=== PATIENT | male | born 1955 | race Caucasian/White ===

== ENCOUNTER → 2023-12-26 09:47 | Outpatient (REF) | payer OTHER, SELFPAY ==
[2023-12-26 11:08] LABS: Blood Urea Nitrogen 18 mg/dl (9-20); Calcium 9.5 mg/dl (8.4-10.2); Carbon Dioxide 28 mmol/L (22-30); Chloride 103 mmol/L (98-107); Glucose 105 mg/dl (70-99); Potassium 5.3 mmol/L (3.5-5.1); Sodium 136 mmol/L (135-145); eGFR > 60.00
== END ==
LOC: REG 09:47
PROVIDERS: ATTENDING PHYSICIAN Physician Assistant
DX: E87.5 Hyperkalemia (principal)
CPT/HCPCS: 36415; 80048

== ENCOUNTER → 2024-01-25 15:39 | Outpatient (REF) | payer OTHER, SELFPAY | LOC: HWRAD 15:39 | PROVIDERS: ATTENDING PHYSICIAN Family Medicine | DX: Z87.891 Personal history of nicotine dependence (principal) | CPT/HCPCS: 71271 ==

== ENCOUNTER 2024-06-26 22:34 | Inpatient (IN) | payer OTHER, MEDICARE, SELFPAY ==
[2024-06-26] VITALS (9 sets, daily range): BP systolic 90–162; BP diastolic 63–89; BMI 27.9
--- NOTE | 2024-06-26 21:11 | ED.GENMED ---
History of Present Illness
<JORGE Palomares - Last Filed: 06/26/24 23:37>
General
Chief Complaint: Chest Pain
Source: patient
Exam Limitations: none
Time Seen by Provider: 06/26/24 21:08
Nursing documentation reviewed up to this point in time: agreed with
History of Present Illness
History of Present Illness:
Patient is a 68-year-old male past medical history of stroke presents to the ER for evaluation of chest pain. Patient reports he had an episode of chest pain today at lunch around 2 PM which lasted for about half an hour and then pain restarted
around 6 PM while eating dinner. He could barely eat his dinner although he did have some Pasta. He does admit to having 4 beers around 4 pm. He reports the pain was across his chest and did not radiate to arm/back. HE did break out in a
sweat withth pain and felt nauseous he did not vomit. EMS was called to scene and patient received 2 nitroglycerin and aspirin and he reports this did not relieve the symptoms. He however also took his own ASA.
He is a smoker.
He continues to have pain. pt is not on blood thinner.
Past History
<JORGE Palomares - Last Filed: 06/26/24 23:37>
Past History
ED Past Medical History: None
ED Past Surgical History: Orthopedic (knee surgery) and Other (Hernia repair bilateral, colovesical fistula and splenic flexure mobilization in December of 2016)
Social History
Tobacco: Smoker (3 packs per week)
Alcohol: Occasional
Drug: None
Personal:
Living: with family
Employment: Employed
Family History
Family History: Other (reviewed and noncontributory)
Phy Exam
<JORGE Palomares - Last Filed: 06/26/24 23:37>
General Physical Exam
General Presentation: mild distress
General age: appears stated age
General Skin: warm and dry
General Habitus: normal
General Mental: alert
General Hydration: appears well hydrated
Cardiovascular Exam
Cardiovascular Exam: regular rate/rhythm, no murmur and normal peripheral pulses
Pulmonary Exam
Pulmonary Exam: lungs clear and no respiratory distress
Neurological Exam
Neurological Exam: alert and oriented x3
Musculoskeletal Exam
Musculoskeletal Exam: full ROM
Skin Exam
Skin Exam: normal color and warm/dry
Psychiatric Exam
Psychiatric Exam: normal mood/affect
Scores
<Mariam Templeton DO - Last Filed: 06/27/24 00:59>
Heart Score for Chest Pain Patients
STEMI patient?: No
History: Highly Suspicious
ECG: Nonspecific Repolarization
Age: >/= 65 years
Risk Factors: 1 or 2 Risk Factors
Troponin: </= Normal Limit
Heart Score for Chest Pain Patients: 6
Heart Score Risk: 20.3% MACE over next 6 weeks
Course
<JORGE Palomares - Last Filed: 06/26/24 23:37>
Orders/Labs/Results
Orders:
Orders
06/26/24 21:02
Amiodarone [Cordarone] 150 mg .ROUTE .STK-MED ONE
EPINEPHrine [Adrenalin 1 mg/10 ml] 1 mg .ROUTE .STK-MED ONE
Etomidate [Amidate] 40 mg .ROUTE .STK-MED ONE
Rocuronium Semora [Rocuronium] 100 mg .ROUTE .STK-MED ONE
06/26/24 21:03
Electrocardiogram (*1) Urgent
Reason for Study: Chest Pain
Cardiac Monitoring- Treatment ONCE
EKG- Treatment ONCE
IV Insert/Care/Rem.- Treatment PRN
O2 Therapy [RESP] Urgent
Titrate/Wean O2 to maintain O2 sat greater than (%): 90
Special Instructions: Maintain sats >/=90%
Pulse Ox/spot Check [RESP] Urgent
Quantity: 1
Special Instructions: ON ROOM AIR
06/26/24 21:09
Complete Blood Count/With Diff Urgent
Comprehensive Metabolic Panel Urgent
Manual Differential Urgent
Troponin I Urgent
06/26/24 21:17
Mag Hydrox/Al Hydrox/Simeth [Maalox] 30 ml Phenobarb/Hyoscy/Atropine/Scop [] 10 ml PO NOW
06/26/24 21:26
EKG [Electrocardiogram (*1)] Stat
Reason for Study: CAD
06/26/24 21:27
EKG- Treatment ONCE
06/26/24 21:29
Ondansetron Injectable [Zofran] 4 mg .ROUTE .STK-MED ONE
Ondansetron Injectable [Zofran] 4 mg IV NOW STA
06/26/24 21:34
Amiodarone [Cordarone] 150 mg Dextrose 5%/Water 100 ml [D5w] 100 ml IV NOW
06/26/24 21:35
Amiodarone [Cordarone] 150 mg Dextrose 5%/Water 100 ml [D5w] 100 ml IV NOW
06/26/24 21:36
EKG [Electrocardiogram (*1)] Stat
Reason for Study: CAD
EKG- Treatment ONCE
06/26/24 21:49
Morphine Sulfate 4 mg .ROUTE .STK-MED ONE
06/26/24 22:08
Fentanyl Citrate/Pf [Sublimaze] 100 mcg .ROUTE .STK-MED ONE
Heparin 10,000 units .ROUTE .STK-MED ONE
Heparin 1000 Units/500 ml [Heparin] 1,000 units in 500 ml .ROUTE .STK-MED
Midazolam HCl [Versed] 2 mg .ROUTE .STK-MED ONE
Verapamil Injectable [Isoptin/Verapamil Injection] 5 mg .ROUTE .STK-MED ONE
06/26/24 22:09
Heparin Sodium,Porcine/Ns/Pf [Heparin 2000 Units/1000 ml] 2,000 unit in 1,000 ml .ROUTE .STK-MED
Lidocaine HCl/Pf [Xylocaine-Mpf 1% Vial] 100 mg .ROUTE .STK-MED ONE
Nitroglycerin [Tridil] 1,500 mcg .ROUTE .STK-MED ONE
06/26/24 22:20
Admit/Transfer Patient As Directed
Co-Sign Provider:
Level of Care: Inpatient admission
Assign to:: IVU
Physician / Group: htay
Diagnosis: VTach, assciated with trasient unresponsivenes, CP, ETOH use,HX lacuna CVA
Reason for Hospitalization: V Tach, assciated with trasient unresponsivenes, CP, ETOH use,HX lacuna CVA
Expected length of stay greater than two midnights?: Yes
ELOS- Estimated Length of Stay in days: 3
I certify the patient meets the requirements for IP care: Yes
06/26/24 22:23
Code Status As Directed
Resuscitation Status: Full Code
06/26/24 22:26
Ticagrelor [Brilinta] 180 mg .ROUTE .STK-MED ONE
06/26/24 22:27
Heparin 5,000 units .ROUTE .STK-MED ONE
06/26/24 22:30
Urine Osmolality Random [Osmolality, Random Urine] Routine
Urine Sodium Routine
06/26/24 23:21
Electrocardiogram (*1) Q6H
Reason for Study: Chest Pain
Comment: at admission and Q3H for total of 3, to be done with each troponin
0.9% Sodium Chloride [Nss (Preservative Free)] See Protocol IV PRN PRN
FOLic ACID [Folvite] 1 mg 0.9% Sodium Chloride 50 ml [Nss] 50 ml IV DAILYPRN
Lorazepam [Ativan] 1 mg IV Q1HPRN PRN
Lorazepam [Ativan] 1 mg PO Q2HPRN PRN
Lorazepam [Ativan] 2 mg IV Q1HPRN PRN
06/26/24 23:21
CARDIOLOGY CONSULT Routine
Consulting Provider: Nick Bridges
Was physician already notified: Yes
Reason for consult: VTach, assciated with trasient unresponsivenes, CP, ETOH use,HX lacuna CVA
CARDIOLOGY CONSULT Routine
Consulting Provider: Volodymyr Boss
Was physician already notified: No
Reason for consult: V Tach with AMS s/p Defib - proceeded to high density press laborer
Case Management Consult Once
Case Management Consult: Other
Comment: Substance abuse counseling
Consult Notification Routine
Specialty to Notify: Cardiology
Activity As Directed
Activity Level: With Assistance
INT (Intravenous Needle Therapy) As Directed
Comment: maintain peripheral IV access
Intake/ Output As Directed
Frequency: Per unit guidelines
MSAS SCORE As Directed
MSAS Score 0-4: Repeat MSAS every 2 hours until 0-4 for three consecutive assessments, then every 4 hours x 48
hours.
MSAS Score 5-7: For MILD withdrawl symptoms. Repeat MSAS and RASS every 2 hours
MSAS Score 8-11: For MODERATE withdrawal symptoms. Repeat MSAS and RASS every 1 hour. Consider ICU or IMU
level of care.
MSAS Score > 11: For SEVERE withdrawal symptoms. Repeat MSAS and RASS every 1 hour. Notify provider, consider
ICU level of care.
MSAS Additional Instructions: If no improvement or no decrease in score from severe to moderate within 12
hours, consult psychiatry
MSAS Notify Provider: Notify provider if patient requires more than 10 mg of Lorazepam in eight hour period.
Pneumatic Compression Sleeves As Directed
Type: Knee high
Pneumatic Compression Sleeves As Directed
Type: Knee high
Vital Signs As Directed
Frequency: q4h
Weight As Directed
Frequency: Daily
DX Deep Vein Thrombosis Video Routine
DX Deep Vein Thrombosis Video Routine
06/26/24 23:31
Alcohol Urgent
GGTP Urgent
Troponin I Q3H
Comment: at admit & Q3H for 3 total including ED draws, obtain ECG with each level
06/27/24 02:21
Troponin I Q3H
Comment: at admit & Q3H for 3 total including ED draws, obtain ECG with each level
06/27/24 05:21
Electrocardiogram (*1) Q6H
Reason for Study: Chest Pain
Comment: at admission and Q3H for total of 3, to be done with each troponin
Troponin I Q3H
Comment: at admit & Q3H for 3 total including ED draws, obtain ECG with each level
06/27/24 Breakfast
NPO
Allow oral meds: Yes
Allow clear liquids: No
NPO with Ice Chips: Yes
Basic Metabolic Panel IN AM
Cardiovascular Evaluation IN AM
Complete Blood Count/No Diff IN AM
06/27/24 08:00
Aspirin Low Dose EC [Aspir Low (Enteric Coated)] 81 mg PO DAILY
FOLic ACID [Folvite] 1 mg PO DAILY
Thiamine Injection 200 mg IV Q12
06/27/24 11:21
Electrocardiogram (*1) Q6H
Reason for Study: Chest Pain
Comment: at admission and Q3H for total of 3, to be done with each troponin
06/27/24 18:00
Rosuvastatin Calcium [Crestor] 20 mg PO QPM
06/30/24 08:00
Thiamine HCl [Vitamin B1] 100 mg PO BID
Abnormal Lab Results
06/26/24
21:09
WBC 12.5 H 10^3/uL
(4.8-10.8)
RBC 3.98 L 10^6/uL
(4.70-6.10)
Hgb 12.5 L g/dL
(13.0-18.0)
Hct 35.4 L %
(39.0-52.0)
MCH 31.4 H pg
(27.0-31.0)
Monocytes (Manual) 13 H %
(2-9)
Sodium 128 L mmol/L
(135-145)
Chloride 95 L mmol/L
(98-107)
Glucose 126 H mg/dl
(70-99)
06/26/24 21:09
06/26/24 21:09
Vital Signs
Initial and Last Documented VS:
Initial Vital Signs
Temp Pulse Resp BP Pulse Ox
98.2 F 70 16 90/67 98
06/26/24 21:05 06/26/24 21:05 06/26/24 21:05 06/26/24 21:05 06/26/24 21:05
Last Documented Vital Signs
Temp Pulse Resp BP Pulse Ox
98.3 F 76 16 101/68 99
06/26/24 23:23 06/26/24 22:00 06/26/24 23:23 06/26/24 22:00 06/27/24 00:36
Modern Languages Professor consulted with Physician
Modern Languages Professor consulted with physician?: Yes
Name of Physician Consulted: Jareth
<Mariam Templeton, DO - Last Filed: 06/27/24 00:59>
Orders/Labs/Results
Orders:
Orders
06/26/24 21:02
Amiodarone [Cordarone] 150 mg .ROUTE .STK-MED ONE
EPINEPHrine [Adrenalin 1 mg/10 ml] 1 mg .ROUTE .STK-MED ONE
Etomidate [Amidate] 40 mg .ROUTE .STK-MED ONE
Rocuronium Semora [Rocuronium] 100 mg .ROUTE .STK-MED ONE
06/26/24 21:03
Electrocardiogram (*1) Urgent
Reason for Study: Chest Pain
Cardiac Monitoring- Treatment ONCE
EKG- Treatment ONCE
IV Insert/Care/Rem.- Treatment PRN
O2 Therapy [RESP] Urgent
Titrate/Wean O2 to maintain O2 sat greater than (%): 90
Special Instructions: Maintain sats >/=90%
Pulse Ox/spot Check [RESP] Urgent
Quantity: 1
Special Instructions: ON ROOM AIR
06/26/24 21:09
Complete Blood Count/With Diff Urgent
Comprehensive Metabolic Panel Urgent
Manual Differential Urgent
Troponin I Urgent
06/26/24 21:17
Mag Hydrox/Al Hydrox/Simeth [Maalox] 30 ml Phenobarb/Hyoscy/Atropine/Scop [] 10 ml PO NOW
06/26/24 21:26
EKG [Electrocardiogram (*1)] Stat
Reason for Study: CAD
06/26/24 21:27
EKG- Treatment ONCE
06/26/24 21:29
Ondansetron Injectable [Zofran] 4 mg .ROUTE .STK-MED ONE
Ondansetron Injectable [Zofran] 4 mg IV NOW STA
06/26/24 21:34
Amiodarone [Cordarone] 150 mg Dextrose 5%/Water 100 ml [D5w] 100 ml IV NOW
06/26/24 21:35
Amiodarone [Cordarone] 150 mg Dextrose 5%/Water 100 ml [D5w] 100 ml IV NOW
06/26/24 21:36
EKG [Electrocardiogram (*1)] Stat
Reason for Study: CAD
EKG- Treatment ONCE
06/26/24 21:49
Morphine Sulfate 4 mg .ROUTE .STK-MED ONE
06/26/24 22:08
Fentanyl Citrate/Pf [Sublimaze] 100 mcg .ROUTE .STK-MED ONE
Heparin 10,000 units .ROUTE .STK-MED ONE
Heparin 1000 Units/500 ml [Heparin] 1,000 units in 500 ml .ROUTE .STK-MED
Midazolam HCl [Versed] 2 mg .ROUTE .STK-MED ONE
Verapamil Injectable [Isoptin/Verapamil Injection] 5 mg .ROUTE .STK-MED ONE
06/26/24 22:09
Heparin Sodium,Porcine/Ns/Pf [Heparin 2000 Units/1000 ml] 2,000 unit in 1,000 ml .ROUTE .STK-MED
Lidocaine HCl/Pf [Xylocaine-Mpf 1% Vial] 100 mg .ROUTE .STK-MED ONE
Nitroglycerin [Tridil] 1,500 mcg .ROUTE .STK-MED ONE
06/26/24 22:20
Admit/Transfer Patient As Directed
Co-Sign Provider:
Level of Care: Inpatient admission
Assign to:: IVU
Physician / Group: htay
Diagnosis: VTach, assciated with trasient unresponsivenes, CP, ETOH use,HX lacuna CVA
Reason for Hospitalization: V Tach, assciated with trasient unresponsivenes, CP, ETOH use,HX lacuna CVA
Expected length of stay greater than two midnights?: Yes
ELOS- Estimated Length of Stay in days: 3
I certify the patient meets the requirements for IP care: Yes
06/26/24 22:23
Code Status As Directed
Resuscitation Status: Full Code
06/26/24 22:26
Ticagrelor [Brilinta] 180 mg .ROUTE .STK-MED ONE
06/26/24 22:27
Heparin 5,000 units .ROUTE .STK-MED ONE
06/26/24 22:30
Urine Osmolality Random [Osmolality, Random Urine] Routine
Urine Sodium Routine
06/26/24 23:21
Electrocardiogram (*1) Q6H
Reason for Study: Chest Pain
Comment: at admission and Q3H for total of 3, to be done with each troponin
0.9% Sodium Chloride [Nss (Preservative Free)] See Protocol IV PRN PRN
FOLic ACID [Folvite] 1 mg 0.9% Sodium Chloride 50 ml [Nss] 50 ml IV DAILYPRN
Lorazepam [Ativan] 1 mg IV Q1HPRN PRN
Lorazepam [Ativan] 1 mg PO Q2HPRN PRN
Lorazepam [Ativan] 2 mg IV Q1HPRN PRN
06/26/24 23:21
CARDIOLOGY CONSULT Routine
Consulting Provider: Ncik Bridges
Was physician already notified: Yes
Reason for consult: VTach, assciated with trasient unresponsivenes, CP, ETOH use,HX lacuna CVA
CARDIOLOGY CONSULT Routine
Consulting Provider: Volodymyr Boss
Was physician already notified: No
Reason for consult: V Tach with AMS s/p Defib - proceeded to high density press laborer
Case Management Consult Once
Case Management Consult: Other
Comment: Substance abuse counseling
Consult Notification Routine
Specialty to Notify: Cardiology
Activity As Directed
Activity Level: With Assistance
INT (Intravenous Needle Therapy) As Directed
Comment: maintain peripheral IV access
Intake/ Output As Directed
Frequency: Per unit guidelines
MSAS SCORE As Directed
MSAS Score 0-4: Repeat MSAS every 2 hours until 0-4 for three consecutive assessments, then every 4 hours x 48
hours.
MSAS Score 5-7: For MILD withdrawl symptoms. Repeat MSAS and RASS every 2 hours
MSAS Score 8-11: For MODERATE withdrawal symptoms. Repeat MSAS and RASS every 1 hour. Consider ICU or IMU
level of care.
MSAS Score > 11: For SEVERE withdrawal symptoms. Repeat MSAS and RASS every 1 hour. Notify provider, consider
ICU level of care.
MSAS Additional Instructions: If no improvement or no decrease in score from severe to moderate within 12
hours, consult psychiatry
MSAS Notify Provider: Notify provider if patient requires more than 10 mg of Lorazepam in eight hour period.
Pneumatic Compression Sleeves As Directed
Type: Knee high
Pneumatic Compression Sleeves As Directed
Type: Knee high
Vital Signs As Directed
Frequency: q4h
Weight As Directed
Frequency: Daily
DX Deep Vein Thrombosis Video Routine
DX Deep Vein Thrombosis Video Routine
06/26/24 23:31
Alcohol Urgent
GGTP Urgent
Troponin I Q3H
Comment: at admit & Q3H for 3 total including ED draws, obtain ECG with each level
06/27/24 02:21
Troponin I Q3H
Comment: at admit & Q3H for 3 total including ED draws, obtain ECG with each level
06/27/24 05:21
Electrocardiogram (*1) Q6H
Reason for Study: Chest Pain
Comment: at admission and Q3H for total of 3, to be done with each troponin
Troponin I Q3H
Comment: at admit & Q3H for 3 total including ED draws, obtain ECG with each level
06/27/24 Breakfast
NPO
Allow oral meds: Yes
Allow clear liquids: No
NPO with Ice Chips: Yes
Basic Metabolic Panel IN AM
Cardiovascular Evaluation IN AM
Complete Blood Count/No Diff IN AM
06/27/24 08:00
Aspirin Low Dose EC [Aspir Low (Enteric Coated)] 81 mg PO DAILY
FOLic ACID [Folvite] 1 mg PO DAILY
Thiamine Injection 200 mg IV Q12
06/27/24 11:21
Electrocardiogram (*1) Q6H
Reason for Study: Chest Pain
Comment: at admission and Q3H for total of 3, to be done with each troponin
06/27/24 18:00
Rosuvastatin Calcium [Crestor] 20 mg PO QPM
06/30/24 08:00
Thiamine HCl [Vitamin B1] 100 mg PO BID
Abnormal Lab Results
06/26/24
21:09
WBC 12.5 H 10^3/uL
(4.8-10.8)
RBC 3.98 L 10^6/uL
(4.70-6.10)
Hgb 12.5 L g/dL
(13.0-18.0)
Hct 35.4 L %
(39.0-52.0)
MCH 31.4 H pg
(27.0-31.0)
Monocytes (Manual) 13 H %
(2-9)
Sodium 128 L mmol/L
(135-145)
Chloride 95 L mmol/L
(98-107)
Glucose 126 H mg/dl
(70-99)
06/26/24 21:09
06/26/24 21:09
Vital Signs
Initial and Last Documented VS:
Initial Vital Signs
Temp Pulse Resp BP Pulse Ox
98.2 F 70 16 90/67 98
06/26/24 21:05 06/26/24 21:05 06/26/24 21:05 06/26/24 21:05 06/26/24 21:05
Last Documented Vital Signs
Temp Pulse Resp BP Pulse Ox
98.3 F 76 16 101/68 99
06/26/24 23:23 06/26/24 22:00 06/26/24 23:23 06/26/24 22:00 06/27/24 00:36
<JORGE Palomares - Last Filed: 06/26/24 23:37>
MDM/Problems Addressed
MDM/Problems Addressed:
2121: called to room by nurse who noticed that Pt went into V TACH on monitor . Dr Templeton at bedside. Patient not responsive chest compressions started by nurse. Patient went into V-fib synchronized shock was given a 200 J patient went into normal
sinus rhythm. Pt was breathing on his own and moaning then awoke stating he had to vomit and vomited. Pt repeat ekg done after initial shock with pvc questionable mild elevation in lateral leads. Cardiology, Dr. Alberto as well as Dr. Bridges
clinical rehabilitation specialist made aware.
Pt has remained awake since Brilinta and Heparin given.
Dr Bridges to come in and cardiac cath team was notified
[id number]: DR Bridges/ DR Romero at bedside pt going to high density press laborer. discussed plan with .
Chronic conditions affecting care:
cva/smoker
<JORGE Palomares - Last Filed: 06/26/24 23:37>
*Pulse Oximetry
Patient hypoxic: no
*EKG
Interpreted by ED Provider?: Yes
Heart Rate: 87
Rate: normal
Rhythm: sinus
Ischemia: non-specific ST changes
<Mariam Templeton DO - Last Filed: 06/27/24 00:59>
*Critical Care Note
Total Time (30-74mins, 75-104mins- exclusive of procedures): 51
comment:
The high probability of a clinically significant, sudden or life threatening deterioration of the cardiovascular system(s) required my full and direct attention, intervention and personal management. The aggregate critical care time was 51 minutes.
This time is in addition to time spent performing reported procedures but includes the following:
[x] Data Review and interpretation
[x] Patient assessment and monitoring of vital signs
[x] Documentation
[x] Medication orders and management
[x] discussion and consultation with specialist
ED Attending Note
<JORGE Palomares - Last Filed: 06/26/24 23:37>
-
Portions of this chart may have been created with voice recognition software.� Occasional wrong word or��sound alike� substitutions may have occurred due to the inherent limitations of voice recognition software.
<Mariam Templeton DO - Last Filed: 06/27/24 00:59>
ED Attending Note
Patient seen and examined by attending physician: Yes
I performed the substantive portion of visit, reviewed & personally made and approve the management plan that is documented in note by myself or DEANA.: Yes
I performed a history and physical exam of patient and discussed management with resident, I reviewed resident's note and agree with documented findings and plan of care.: Yes
ED Attending Note:
68-year-old male with history of prior CVA and tobacco abuse presenting to the emergency department for chest pain. Patient reports that the chest pain has been ongoing since 6 PM, intermittent. He tried to eat, however was unable to do so
secondary to the pain. Pain is all across his chest. Denies any known history of cardiac disease. Patient was also having some chest pain earlier in the day. notes that patient has been sleeping well for the past few days, and had been
intermittently complaining of pain. Patient received aspirin prior to arrival, as well as 2 nitro without significant relief of symptoms. Vital signs on arrival significant for hypotension.
Patient initially seen and evaluated by nurse practitioner, reportedly unremarkable examination with the exception of patient uncomfortable. EKG obtained, interpreted by me, no significant sign of ischemia. Soon after initial examination, I was
called to bedside for patient unresponsive.
21:22 - On my assessment, patient unresponsive. Code cart and airway cart brought to bedside. ACLS began with chest compressions. Prior to any administration of medications, pulse was checked, patient did have a pulse, however appeared to be in
V-fib so was shocked at 200 J with return to sinus rhythm. Repeat EKG again grossly without clear-cut STEMI, some slight depression to V1 and V2, with mild elevations laterally. Preparations made for intubation for airway protection. Patient
prior to intubation started to wake up, reported that he had to vomit. After episode of vomiting, patient awake, alert, answering questions appropriately so intubation held. Patient however still chest pain
21:30 - In the setting of V-fib arrest with persistent chest pain, decision made to discuss with interventional cardiology, Dr. Bridges. Dr. Bridges in agreement, with plan for cardiac catheterization. He will come in for catheterization, cath team
called in. updated as well as patient. Patient continues to protect airway.
21:55 - Dr. Bridges at bedside. Patient to high density press laborer.
Discharge Plan
Departure
Patient Disposition: [employer] [employer] [facility]
Date of Disposition: 06/26/24
Time of Disposition: 22:04
Admit to: [employer]
Admit to doctor: kayla
Presentation/result/management discussed w/ accepting MD/DO: Hospitalist
Patient with high blood pressure during this ER visit?: No
Condition: Critical
Covid-19: Not Applicable
Discharge Problem:
Cardiac arrest with ventricular fibrillation, Chest pain
Interventions
Interventions:
*Risk Screen - Suicide Last Done: 06/26/24 23:47
*General Assessment Last Done: 06/26/24 21:05
*Neglect/Abuse Screening Last Done: 06/26/24 21:05
ED- Fall Risk Assessment Last Done: 06/26/24 21:05
*ED COVID-19 Vaccine History Last Done: 06/26/24 23:39
*Nursing Disposition Last Done: 06/26/24 22:00
ED- Cardiac Assessment Last Done: 06/26/24 21:08
Discharge Date and Time
Discharge Date/Time: 06/26/24 22:15
[2024-06-26 21:25] LABS: Hematocrit 35.4 % (39.0-52.0); Hemoglobin 12.5 g/dL (13.0-18.0); Mean Corp Hgb Conc. 35.3 g/dL (33.0-37.0); Mean Corpuscular Hgb 31.4 pg (27.0-31.0); Mean Corpuscular Volume 88.9 fL (80.0-94.0); Platelet Count 230 10^3/uL (130-400); Red Blood Cell Count 3.98 10^6/uL (4.70-6.10); White Blood Cell Count 12.5 10^3/uL (4.8-10.8)
[2024-06-26] MEDS: ZOFRAN 4 MG IV (21:31)
--- NOTE | 2024-06-26 21:36 | EDRN ---
150mg IV bolus amiodarone given.
[2024-06-26 21:39] LABS: Troponin I < 0.012 ng/ml
[2024-06-26 21:46] LABS: ALT (SGPT) 24 U/L (0-50); AST (SGOT) 30 U/L (17-59); Albumin 4.2 g/dl (3.5-5.0); Alkaline Phosphatase 76 U/L (38-126); Blood Urea Nitrogen 12 mg/dl (9-20); Carbon Dioxide 24 mmol/L (22-30); Chloride 95 mmol/L (98-107); Estimated Creatinine Clearance 87 ml/min; Glucose 126 mg/dl (70-99); Potassium 3.8 mmol/L (3.5-5.1); Sodium 128 mmol/L (135-145); Total Bilirubin 0.4 mg/dl (0.2-1.3); Total Protein 6.7 g/dl (6.3-8.2); eGFR > 60.00
[2024-06-26 21:50] LABS: Absolute Neutrophils -Man Diff 5.7 10^3/uL (1.4-6.5); Atypical Lymphocytes 12 %; Band Neutrophils 0 % (0-3); Eosinophils 2 % (0-6); Lymphocytes 27 % (20-51); Monocytes 13 % (2-9); Segmented Neutrophils 46 % (42-75)
[2024-06-26 21:51] LABS: Normal RBC Morphology Yes; Platelets Checked Yes; Total Cells Counted 100
--- NOTE | 2024-06-26 21:57 | EDRN ---
Dr. Lo at bedside for eval.
Pts at bedside.
--- NOTE | 2024-06-26 22:10 | HPS.HSE ---
Addendum entered and electronically signed by Amadeo Romero MD 06/27/24 13:21:
Cardiac cath report :
1. Right dominant circulation with an acute occlusion of the midportion of OM1 1, status post successful PCI (Medtronic Adarsh [place] 3.0 x 18 KERON, postdilated with a Euphora 3.0 x 15 NC balloon) with reduction in stenosis to 0%, restoring CRISTINA-3
flow.
2. Mildly elevated filling pressures (LVEDP = 18 mmHg at 93.0 kg).
3. Severe hypokinesis to akinesis of a large portion of the lateral wall with mildly reduced systolic function, LVEF estimated at 45-50%.
Original Note:
Family Physician
-
Family Physician: INTERVIEWE UNKNOWN - PT NOT
Chief Complaint
-
CP [facility]
History of Present Illness
HPI
68M PMHX of smoker, HX small subacute infarct in the left internal capsule seen at ER fo evalaution of CP:
Acute CP across the chest associated with diaphoresis without radiation
- onset at lunch lasted for about 30 mins
- Recurrence of CP around 6pm while eating dinner but only able to eat small amount
- 10/10 CP since 1800
- EMS was called to scene and patient received 2 SL NTG plus ASA but reports this did not relieve the symptoms
- s/p 2 SL NTG plus 6500 mg PO ASA on arrival to ER
- Drank 4 beers around 4 pm ETOH
- He denies any radiation to Lt arm.
+ Vomited prior to arrival
- No prior HX arrhythmia, WI or established CAD
- Not on blood thinner par patient
At ER:
suddenly unresponsive
VT ? pulseless
Begin CPR and CV
Return of pulse and converted to NSR
Vomited and woke up
Not intubated
Medical History
Past Medical History
Past Medical History: Reports Other
Additional Past Medical History:
HX 6 mm nodular focus along the superior aspect of the pituitary gland may represent a small pituitary neoplasm per brain MRI 08/30/22
HX Small subacute infarct in the posterior limb of the left internal capsule per 08/30/22 Brain MRI
Constipation
Diverticulitis
Arthritis
Umbilical hernia
Past Surgical History: Reports Orthopedic and Other (Hernia repair)
Social History
Tobacco: Smoker
Alcohol: Daily (4- 5 beers )
Drug: None
Personal:
Living: With Family
Family History
Family History: Not pertinent
Allergies / Home Medications
Allergies reflects when Allergies were last updated in [facility].
Home Medications with original date entered in [facility]
Allergy/Medication List:
Allergies
Allergy/AdvReac Type Severity Reaction Status Date / Time
Penicillins Allergy Hives Verified 06/26/24 21:04
Home Medications
aspirin 81 mg tablet,delayed release 81 mg PO DAILY 30 days #30 tabs 08/31/22
ibuprofen 200 mg tablet 600 mg PO BIDPRN PRN mild pain 06/26/24
ropinirole 2 mg tablet 2 mg PO HS 06/26/24
rosuvastatin 20 mg tablet 20 mg PO QPM 06/26/24
Review of Systems
-
Constitutional: Reports No Symptoms
EENT: Reports No Symptoms
Respiratory: Reports No Symptoms
Cardiac: Reports Chest Pain
Abdomen/GI: Reports No Symptoms
: Reports No Symptoms
Musculoskeletal: Reports No Symptoms
Skin: Reports No Symptoms
Neurological: Reports See HPI
Endocrine: Reports No Symptoms
Hematologic/Lymphatic: Reports No Symptoms
Psych: Reports No Symptoms
Physical Exam
Vital Signs
Vital Signs
Temp Pulse Resp BP Pulse Ox
98.2 F 76 12 101/68 99
06/26/24 22:00 06/26/24 22:00 06/26/24 22:00 06/26/24 22:00 06/26/24 22:00
Physical Exam
General: Well Developed and Conversant (apprpriate ); No Respiratory Distress or Appears in Distress
HEENT: No Moist mucous membranes (dry OM with coated tougue )
Respiratory: Clear; No Wheezes, Rales or Rhonchi
Cardiac: S1/S2 and Regular Rhythm; No Murmur
GI: Soft, Non Tender and Non Distended
Musculoskeletal: No Edema
Skin: Warm and Dry
Neuro: Awake and AO x 3; No No Motor Deficits
Psych: Calm
Laboratory Results
-
06/26/24 21:09
06/26/24 21:09
Laboratory Results
Total Bilirubin 0.4 mg/dl (0.2-1.3) 06/26/24 21:09
AST 30 U/L (17-59) 06/26/24 21:09
ALT 24 U/L (0-50) 06/26/24 21:09
Alkaline Phosphatase 76 U/L (38-126) 06/26/24 21:09
Troponin I < 0.012 ng/ml 06/26/24 21:09
Data Reviewed
-
Medical Tests (Nuc Med, Echo, EKG etc): Report Reviewed by me
Lab Data: Labs Reviewed by me
Old Records: Reviewed
Impression/Plan
-
Reviewed VS: Afebrile Hypotensive hi 90s/60s HR 70
Data
WCC 12.5
Hgb 12.5
Na 128
Cl 95
nl eGFR
BG 126
NEG TPNI
EKG @2135
NORMAL SINUS RHYTHM
NONSPECIFIC ST ABNORMALITY
ABNORMAL ECG
WHEN COMPARED WITH ECG OF 26-JUN-2024 21:30,
PREMATURE VENTRICULAR COMPLEXES ARE NO LONGER PRESENT
PREMATURE ATRIAL COMPLEXES ARE NO LONGER PRESENT
EKG @ 2125
SINUS RHYTHM WITH FREQUENT PREMATURE VENTRICULAR COMPLEXES AND PREMATURE
ATRIAL COMPLEXES
OTHERWISE NORMAL ECG
WHEN COMPARED WITH ECG OF 26-JUN-2024 21:06,
PREMATURE VENTRICULAR COMPLEXES ARE NOW PRESENT
PREMATURE ATRIAL COMPLEXES ARE NOW PRESENT
EKG @2102
NORMAL SINUS RHYTHM
NONSPECIFIC ST ABNORMALITY
ABNORMAL ECG
WHEN COMPARED WITH ECG OF 30-AUG-2022 09:14,
ST NOW DEPRESSED IN ANTERIOR LEADS
08/30/22 ECHO
Normal biventricular size and systolic function without regional wall motion abnormality.
No significant valvular disease.
No prior study available for comparison.
08/30/22 MR Brain Without Contrast
1. Small subacute infarct in the posterior limb of the left internal capsule measuring 8 x 4 mm.
An adjacent chronic infarct in the left [place] radiata corresponds to the recent CT finding.
2. Moderate chronic senescent changes, as detailed above.
3. A 6 mm nodular focus along the superior aspect of the pituitary gland may represent a small pituitary neoplasm. No significant mass effect is appreciated. A follow-up contrast-enhanced brain MRI with attention to the pituitary gland can be
performed on a nonemergent basis for further evaluation.
Last hospitalist admission: 08/30/22- 08/31/22 PDx
Subacute CVA
Ambulatory dysfunction
Dysarthria
ASSESSMENT & PLAN
Witnessed VT with suddenly unresponsive @ ER questionable pulselessness
Current smoker
No prior HX WI
- Begin CPR then Defib CV 200 J
- Return of palpable pulse and converted to NSR
- Vomited and woke up -- Not intubated
- Above event is preceded by acute CP across the chest asssociated with diaphoresis witout radiation
- S/P ASA plus 2 SL NTG
- NPO
- heel pricker consulted - uregntly proceeded to cardiac cath
- Defer DAPL to director of catering
Hyponatremia
Hypotensive suspect hypovolemic
suspect excess ADH with acute cardia event
- Trend Na
- Ur Osm and Ur Na
HX suggestive of ETOH use disorder
- daily beer - 4-5 cans daily
- MSAS protocol for low risk
Current smoker
- cessation of smoking suggested
Known HX: Pending Rx reconciliation
HX HLD
HX Small subacute infarct in the posterior limb of the left internal capsule per 08/30/22 Brain MRI: not on AP
HX 6 mm nodular focus along the superior aspect of the pituitary gland may represent a small pituitary neoplasm per brain MRI 08/30/22
HX Constipation
HX Diverticulitis
HX Arthritis
HX Umbilical hernia
DVT Px: SCD
Code: Full
IVU
[2024-06-26 22:52] LABS: ACT-LR - POC 348 Seconds (116-155)
[2024-06-26] MEDS: NSS 1000 IV (23:05)
--- NOTE | 2024-06-26 23:11 | CON.CAR ---
Consultation
Consultation Request
Date/Time Consultation Requested: 06/26/2024; 21:35
Date/Time Consultation Performed: 06/26/2024; 21:50
Requesting Provider: JORGE Palacios
Performing Provider: Nick Lo D.O.
Reason for Consultation: VF arrest.
Medical History
-
Chief Complaint: Chest pain.
History of Present Illness:
68 y/o male with prior history of lacunar infarct and hyperlipidemia presenting with intermittent chest pain since 14:00 today. Pain was fairly severe, but difficult to isolate and initially the patient believed it was GERD. The pain became
constant and severe around 18:00. He did admit to nausea and diaphoresis. EMS was called and administered SLNG x2 without effect. The patient presented to ER around 21:00. He was triaged to room 9 and the ER began a workup. EKG show
non-specific changes but no evidence of ST elevation NM. During workup, the patient suffered a ventricular fibrillation arrest. He was defibrillated x1 and a bolus of amiodarone was given. Cardiology was consulted and the flower shop laborer/designer was activated.
At the time of interview, the patient complains of constant, 10/10 chest pain. He is unaware of his VF arrest.
His is present at the bedside and corroborates the patient's account of today's events.
Past Medical History
Past Medical History: CVA (Lacunar.) and Hypercholesterolemia
Past Surgical History: Other (Hernia repair.)
Social History
Tobacco: Smoker (1 pack per week.)
Alcohol: Occasional
Drug: None
Personal:
Living: With Family
Family History
Family History: Unable to Obtain (Due to the acuity of the situation.)
Allergies / Home Medications
Allergy/AdvReac Type Severity Reaction Status Date / Time
Penicillins Allergy Hives Verified 06/26/24 21:04
�Medication �Instructions �Recorded �Confirmed �Type
aspirin 81 mg tablet,delayed 81 mg PO DAILY 30 days #30 tabs 08/31/22 06/26/24 Rx
release
ibuprofen 200 mg tablet 600 mg PO BIDPRN PRN mild pain 06/26/24 06/26/24 History
ropinirole 2 mg tablet 2 mg PO HS 06/26/24 06/26/24 History
rosuvastatin 20 mg tablet 20 mg PO QPM 06/26/24 06/26/24 History
Review of Systems
-
Unable to obtain full review of systems at this time due to: Acuity
History Source: Patient and Family
Constitutional: No Symptoms
Respiratory: Trouble Breathing
Cardiac: Chest Pain and Diaphoresis
Abdomen/GI: Nausea
: No Symptoms
Musculoskeletal: No Symptoms
Physical Exam
Vital Signs
Temp Pulse Resp BP Pulse Ox
36.8 C 76 12 101/68 99
06/26/24 22:00 06/26/24 22:00 06/26/24 22:00 06/26/24 22:00 06/26/24 22:00
Lab Results
06/26/24 21:09
06/26/24 21:09
Troponin I < 0.012 ng/ml 06/26/24 21:09
Physical Exam
General: Well Developed, Well Nourished and Respiratory Distress
HEENT: Normocephalic, Anicteric and Other (Dry mucous membranes.)
Respiratory: Clear
Cardiac: S1/S2 and Regular Rhythm
Breast: Deferred by me
GI: Soft, Non Tender, Non Distended and Normal Bowel Sounds
Rectal: Deferred by Provider
Musculoskeletal: No Clubbing, No Cyanosis and No Edema
Skin: Warm and Dry
Neuro: AO x 3
Hematologic/Lymphatic: No Lymphadenopathy
Impression / Plan
-
68 y/o male with HLD and prior lacunar CVA admitted with intermittent chest pain beginning at 14:00 today, becoming constant and severe around 18:00, complicated by VF arrest.
#VF arrest
-Acute, resolved.
-In the context of chest pain, this is a STEMI equivalent.
-Emergent cardiac catheterization.
-Consent is signed (by spouse) and on the chart.
-Ticagrelor, aspirin and heparin given in ER.
-Amiodarone bolused.
-Further instructions to follow.
#Chest pain
-Acute.
-Highly concerning for ACS.
-Cath as above.
#Dispo
-Directly to cardiac flower shop laborer/designer, likely IVU post procedure.
Data Reviewed
-
EKG: Tracing Personally Visualized and interpreted and Report Reviewed by me
--- NOTE | 2024-06-26 23:22 | ITS.CL.ANGIO ---
Roll Grinder Operator - Angioplasty
Angioplasty
Procedure Report:
CARDIAC CATHETERIZATION REPORT
Date of Procedure: 06/26/2024
Referring: JORGE Palacios
INDICATION: VF arrest.
PROCEDURE:
1. Left heart catheterization.
2. Left ventriculography.
3. Coronary angiography.
4. Successful PCI of the large first obtuse marginal.
ACCESS:
6 Latvian right radial artery.
CATHETERS:
1. 5 Latvian angled pigtail.
2. 5 Latvian JR4.
3. 5 Latvian JL 3.5.
4. 6 Latvian EBU 3.5 guiding catheter.
HEMODYNAMIC DATA
Weight (kg): 93.0
AO (s/d/x, mmHg): 117/69/91
LV (s/x mmHg): 120/18
LEFT VENTRICULOGRAPHY: Performed in LU projection. Normal left ventricular size. There is severe hypokinesis to akinesis of a large portion of the lateral wall. Left ventricular systolic function is mildly impaired. Left ventricular ejection
fraction estimated at 45-50%. There is no mitral valve regurgitation. There is no aortic valve insufficiency. The aortic root and visualized ascending and descending aorta appear normal.
CORONARY ANGIOGRAPHY
Dominance: Right.
Left Main: Normal size, bifurcating vessel. There is no coronary artery disease.
LAD: Normal size vessel giving rise to 2 diagonals. The first diagonal is a small, sub-1 mm vessel. The second diagonal is a medium to large size vessel supplying the majority of the anterolateral wall.
Ramus: Congenitally absent.
Circumflex: Large sized, nondominant vessel giving rise to 1 large obtuse marginal before terminating as a large left posterolateral branch. The obtuse marginal is acutely occluded in its midportion, right at the origin of a small descending
branch. This occlusion is initially not appreciated and only becomes obvious after introduction of the interventional equipment.
RCA: Normal size, dominant vessel. There is no coronary artery disease.
INTERVENTION(S)
1. Successful PCI of the mid OM1 100% occlusion (Medtronic Adarsh [place] 3.0 x 18 KERON, postdilated with a Medtronic Euphora 3.0 x 15 NC balloon) with reduction in stenosis to 0%, restoring CRISTINA-3 flow.
Narrative:
The decision was made to proceed with percutaneous coronary intervention. The diagnostic catheter was removed over a wire and a 6Fr EBU 3.5 guiding catheter was advanced to the aortic root and seated in the left main coronary artery. Additional
heparin was given and a Power Turn Flex wire was advanced into the obtuse marginal. Initially, the thought was that the small descending branch was the culprit lesion, though this did not necessarily anatomically correlate with the LV gram. While
exploring the lesion with a wire, the power turn flex wire was able to traverse the acute occlusion and OM1. The acute 100% mid OM1 lesion was predilated with a 2.0 x 12 semi-compliant balloon to 12 renata, restoring CRISTINA-3 flow. The semi-compliant
balloon was removed and a Medtronic Adarsh [place] 3.0 x 18 drug-eluting stent was advanced. The stent was deployed at 12 atmospheres. The stent balloon was removed. A 3.0 x 15 noncompliant balloon was advanced into the stent and the stent was
postdilated to 14 atmospheres. Angiography was performed in orthogonal views, confirming good stent expansion and an excellent angiographic result. This did reveal a significant narrowing of the ostium of the small descending artery, but the
patient had become chest pain-free and CRISTINA-3 flow remained in the artery. The power turn flex wire was pulled back into the stent and was able to cross the stent struts into the's descending artery, proving that the artery was percutaneously
accessible if needed. The coronary wire was withdrawn and the guide was disengaged from the artery. The catheter was removed over a standard J-wire.
Closure Device: Vascular band.
Radiation (mGy): 1047.93
DAP (cm2.Gy): 65.2810
Fluoroscopy time (minutes): 8.8
Sedation time (minutes): 38
CONCLUSIONS
1. Right dominant circulation with an acute occlusion of the midportion of OM1 1, status post successful PCI (Medtronic [place] 3.0 x 18 KERON, postdilated with a Euphora 3.0 x 15 NC balloon) with reduction in stenosis to 0%, restoring CRISTINA-3
flow.
2. Mildly elevated filling pressures (LVEDP = 18 mmHg at 93.0 kg).
3. Severe hypokinesis to akinesis of a large portion of the lateral wall with mildly reduced systolic function, LVEF estimated at 45-50%.
RECOMMENDATIONS:
1. Expectant management after cardiac catheterization via right radial approach.
2. Limited weight bearing on the right wrist for one week.
3. Dual antiplatelet therapy with aspirin ticagrelor for at least 12 months, followed by aspirin indefinitely.
4. Aggressive risk factor modification.
5. Guideline directed medical therapy as hemodynamics will tolerate.
6. Echocardiogram ordered and pending.
7. Referral to cardiac rehab.
Copy to: JORGE Palacios, Dileep Bob M.D.
Nick Lo DO, FACC, FACP
[2024-06-27] VITALS (14 sets, daily range): BP systolic 98–145; BP diastolic 63–81; BMI 28.0
[2024-06-27 00:02] LABS: Alcohol 86 mg/dl; GGTP 28 U/L (15-73)
--- NOTE | 2024-06-27 01:00 | PTCARENOTE ---
Rec'd pt. from radiographer cardiac catheterization post STEMI AAOx3, VSS. NSR in the 70's on the monitor. Pt. complaining of substernal chest and bilateral rib discomfort, level 5/10, only present with inspiration, moving ,and coughing. States it's not the same pain that
brought him to the hospital, attributes it to CPR. Right radial band in place, no bleeding or hematoma, circulation intact. Dr. Lo at bedside to see pt. post procedure, no new order. Second troponin resulted 5.2. Dr. Benitez aware. Pt. sleepy
but answers all questions appropriately. MSAS score 0. Pt. sleeping.
[2024-06-27 03:15] LABS: Urine Sodium 39 mmol/L (30-90)
[2024-06-27 03:17] LABS: Osmolality Urine 237 mOsm/kg (300-900)
[2024-06-27 04:30] LABS: Hematocrit 33.7 % (39.0-52.0); Mean Corp Hgb Conc. 35.6 g/dL (33.0-37.0); Mean Corpuscular Hgb 31.4 pg (27.0-31.0); Mean Corpuscular Volume 88.2 fL (80.0-94.0); Mean Platelet Volume 10.1 fL (7.4-10.4); Platelet Count 205 10^3/uL (130-400); Red Blood Cell Count 3.82 10^6/uL (4.70-6.10); Red Cell Dist. Width 11.9 % (11.5-14.5); White Blood Cell Count 10.5 10^3/uL (4.8-10.8)
[2024-06-27] MEDS: TYLENOL 650 MG PO (04:45)
[2024-06-27 04:56] LABS: Blood Urea Nitrogen 9 mg/dl (9-20); Calcium 8.8 mg/dl (8.4-10.2); Carbon Dioxide 23 mmol/L (22-30); Chloride 103 mmol/L (98-107); Estimated Creatinine Clearance 98 ml/min; Glucose 100 mg/dl (70-99); HDL Cholesterol 54 mg/dl; LDL Cholesterol, Calculated 21 mg/dl; Magnesium 1.9 mg/dl (1.6-2.3); Potassium 4.5 mmol/L (3.5-5.1); Sodium 130 mmol/L (135-145); Total Cholesterol 113 mg/dl (50-199); Triglyceride 191 mg/dl (10-149); Very Low Density Lipoprotein 38 mg/dl (0-30); eGFR > 60.00
--- NOTE | 2024-06-27 07:43 | W.PN.HOSP.TC ---
Today's Communication/Plan
-
Asa/Brilinta
start Metop
TTE
MSAS protocol
Assessment / Plan
Assessment / Plan
68 yo man with hx tobacco use, HX small subacute infarct in the left internal capsule presents to ER with evaluation of chest pain s/p nitro and aspirin with continued pain presents to the ER and had cardiac arrest with pulseless VT s/p CPR and
cardioversion
Cardiac Cath
CONCLUSIONS
1. Right dominant circulation with an acute occlusion of the midportion of OM1 1, status post successful PCI (Medtronic Adarsh [place] 3.0 x 18 KERON, postdilated with a Euphora 3.0 x 15 NC balloon) with reduction in stenosis to 0%, restoring CRISTINA-3
flow.
2. Mildly elevated filling pressures (LVEDP = 18 mmHg at 93.0 kg).
3. Severe hypokinesis to akinesis of a large portion of the lateral wall with mildly reduced systolic function, LVEF estimated at 45-50%.
ASSESSMENT & PLAN
Chest pain
Cardiac Arrest, Pulseless VT
Current smoker
New reduced systolic function with LVEF 45-50% on cardiac cath
s/p CPR and cardioversion and conversion to NSR, patient woke up and vomited, was not intubaed
-Troponin up to 48.1
- s/p urgent cardiac cath with finding acute occlusion midportion OM1 s/p successful PCI
- appreciate cardiology
- continue aspirin/Ticagrelor
- GDMT
-TTE
-NSVT overnight on tele 8 sec - start metop XL 25mg PO QD - discussed wtih cardiology
Hyponatremia
Hypotensive suspect hypovolemic
suspect excess ADH with acute cardia event
- sodium improved this AM
HX suggestive of ETOH use disorder
- daily beer - 4-5 cans daily
- MSAS protocol for low risk
Current smoker
- cessation of smoking suggested
Known HX: Pending Rx reconciliation
HX HLD
HX Small subacute infarct in the posterior limb of the left internal capsule per 08/30/22 Brain MRI: not on AP
HX 6 mm nodular focus along the superior aspect of the pituitary gland may represent a small pituitary neoplasm per brain MRI 08/30/22
HX Constipation
HX Diverticulitis
HX Arthritis
HX Umbilical hernia
DVT Px: SCD
Code: Full
IVU
Anticipated Discharge: 24 - 48 hours
Subjective/Interval History
-
Date of Service: June 27, 2024
MSK chest pain from compressions
no current nausea/vomiting
no similar chest pain to what brought him in
Objective Data
-
Labs:
Laboratory Results
06/26/24 06/27/24
21:09 04:14
WBC 12.5 H 10.5
Hgb 12.5 L 12.0 L
Hct 35.4 L 33.7 L
Plt Count 230 205
Sodium 128 L 130 L
Potassium 3.8 4.5
Chloride 95 L 103
Carbon Dioxide 24 23
BUN 12 9
Creatinine 0.9 0.8
Glucose 126 H 100 H
Calcium 9.0 8.8
Total Bilirubin 0.4
AST 30
ALT 24
Alkaline Phosphatase 76
Vital Signs:
Vital Signs
Temp Pulse Resp BP Pulse Ox
98.3 F 73 18 128/80 98
06/27/24 03:00 06/27/24 05:00 06/27/24 03:00 06/27/24 04:09 06/27/24 05:00
I&O
06/26/24 06/27/24 06/28/24
06:59 06:59 06:59
Output Total 1500 / 1500
Balance -1500 / -1500
Review of Systems
-
History Source: Patient
All other systems: Reviewed and negative
Physical Exam
-
General: No Apparent Distress
HEENT: PERRLA
Respiratory: Clear to Auscultation and Other (reproducible chest pain ); Negative Wheezes
Cardiac: Regular Rhythm and S1/S2
GI: Soft and Nontender
Musculoskeletal: No Edema
Skin: Warm and Dry; Negative Rash
Neuro: AO x 3
Psych: Calm
Data Reviewed
-
Diagnostic Radiology: Report Reviewed by me
Labs: Labs Reviewed by me
--- NOTE | 2024-06-27 07:49 | PTCARENOTE ---
Pt. had 18 beat run VT at 0403, sleeping, completely asymptomatic when woken. Vitals stable. Labs drawn and morning EKG completed at that time. Hospitalist JORGE Alejo notified; instructed to monitor for now. No repeat episodes VT since then
(some small runs PVC's).
--- NOTE | 2024-06-27 08:01 | W.PN.CD ---
Today's Communication / Plan
-
Start metoprolol succinate 25 mg daily.
Start lisinopril 2.5 mg daily.
Trend troponin to peak.
Check lipid panel.
Check HbA1c.
Echocardiogram pending.
Impression / Plan
-
Impression/Plan: 68 y/o male with HLD and prior lacunar CVA admitted with intermittent chest pain beginning at 14:00 today, becoming constant and severe around 18:00, complicated by VF arrest.
#VF arrest
-Acute, resolved.
-In the context of chest pain, this is a STEMI equivalent.
-Cardiac catheterization showed a flush occluded OM, s/p successful PCI (Medtronic Adarsh [place] 3.0 x 18 KERON, post dilated with a 3.0 x 15 NCB) with reduction in stenosis to 0%, restoring CRISTINA III flow.
-LVEF 45-50% with lateral hypokinesis on LV-gram.
-Trend troponin to peak.
-One episode of NSVT overnight.
-DAPT with aspirin and ticagrelor for 12 months, followed by aspirin indefinitely.
-High dose, high potency statin. Cholesterol panel is pending. Goal LDL < 55.
-Check HbA1c.
-Start metoprolol succinate 25 mg daily.
-Echocardiogram ordered/pending.
#ICMO
-Acute, new diagnosis.
-GDMT as hemodynamics will tolerate.
-Start metoprolol succinate as above.
-Add low dose lisinopril. No evidence of HFmEF, so limited role for ARNi.
Subjective/Interval History:
Cathed for chest pain + VF arrest, found to have occluded OM2 --> PCI.
Chest pain resolved after PCI.
One episode of NSVT overnight.
This morning he feels well.
He reports residual chest wall soreness from CPR.
DATA:
Cardiac Catheterization/PCI, 06/26/2024:
CONCLUSIONS
1. Right dominant circulation with an acute occlusion of the midportion of OM1 1, status post successful PCI (Medtronic [place] 3.0 x 18 KERON, postdilated with a Euphora 3.0 x 15 NC balloon) with reduction in stenosis to 0%, restoring CRISTINA-3
flow.
2. Mildly elevated filling pressures (LVEDP = 18 mmHg at 93.0 kg).
3. Severe hypokinesis to akinesis of a large portion of the lateral wall with mildly reduced systolic function, LVEF estimated at 45-50%.
Physical Exam
Vital Signs/Labs
Vital Signs
Temp Pulse Resp BP Pulse Ox
36.8 C 77 16 128/80 99
06/27/24 03:00 06/27/24 07:51 06/27/24 07:51 06/27/24 04:09 06/27/24 07:51
06/25/24 06/26/24 06/27/24
11:59 11:59 11:59
Actual Weight 93.5 kg
06/27/24 04:14
06/27/24 04:14
Magnesium 1.9 mg/dl (1.6-2.3) 06/27/24 04:14
Triglycerides 191 mg/dl (10-149) H 06/27/24 04:14
LDL Cholesterol, Calc 21 mg/dl 06/27/24 04:14
VLDL Cholesterol, Calc 38 mg/dl (0-30) H 06/27/24 04:14
HDL Cholesterol 54 mg/dl 06/27/24 04:14
LAB Results
06/26/24 06/26/24 06/26/24
21:09 23:15 23:31
Troponin I < 0.012 Cancelled 5.200 H* D
06/27/24 06/27/24 06/27/24
04:14 05:15 05:21
Troponin I 48.100 H* D Cancelled Cancelled
Physical Exam
Constitutional: No acute distress and Comfortable
EENT: Anicteric and Moist mucous membranes
Cardiovascular: Rhythm & rate is regular, Pedal edema is absent, JVD pressure is normal, S1S2 is normal and Murmur/rub/gallop absent
Respiratory: Respiratory effort normal, Lungs clear to auscul., Wheeze Absent, Crackles Absent and Rhonchi Absent
GI: Soft, Distention absent, Flat, Non tender and Normal bowel sounds
Neuro/Psych: AO x 3
Other: Cath Site (Right radial access site is C/D/I.)
Data Reviewed
-
Date of Service: June 27, 2024
Medical Decision Making: Reviewed Test Results, Independent Historian Assessment and Test Interpretation
EKG: Tracing Personally Visualized and interpreted and Report Reviewed by me
Echo: Ordered by me
Medical Tests (PFT, Pathology etc): Image Personally Visualized and interpreted and Report Reviewed by me
Labs: Labs Reviewed by me and Labs Ordered by me
Old Records: Reviewed
[2024-06-27 08:30] LABS: Glycohemoglobin (HgbA1c) 5.2 % (4.0-5.6)
[2024-06-27] MEDS: FOLVITE 1 MG PO (08:37)
[2024-06-27] MEDS: ASPIR LOW (ENTERIC COATED) 81 MG PO (08:37)
[2024-06-27] MEDS: TOPROL XL 25 MG PO (08:37)
[2024-06-27] MEDS: BRILINTA 90 MG PO ×2 (08:37→20:20)
[2024-06-27] MEDS: THIAMINE INJECTION 200 MG IV ×2 (08:37→20:19)
[2024-06-27] MEDS: PERCOCET 5/325 1 TABLET PO ×2 (08:54→18:42)
--- NOTE | 2024-06-27 09:07 | CM ---
Addendum entered by Skylar Torres 06/27/24 10:37:
Telephone call to [facility], ([phone]) to check on co-pay for Brilinta 90 mg po bid. His co-pay for 30 days is $50.00 a month or for 90 day supply via mail order $100.00. He has a commercial plan so he can use the $5.00 co-pay card. Placed
the co-pay card in his red discharge folder.
Original Note:
Reviewed chart. Met with Mr. Edmondson to review discharge plans. He states prior to admission he resides with his spouse ib a two story home without any steps to enter. He states he has a full flight of steps to get to bedroom/full bathroom. He
states he has a powder room on the first floor. He states prior to admission he was independent with ambulation and adls. He states he does not have any DME in the home. He states he has a prescription plan and uses [facility]. Medical
work-up in progress. The discharge plan is to return home with his spouse when medically stable.
We reviewed advanced directive infomration. Gave him the paperwork to review.
We reviewed substance abuse counseling. He states he does not feel he has a issues with his alcohol counseling. At this time he was not interested in any formal information or referral.
--- NOTE | 2024-06-27 10:05 | PTCARENOTE ---
Pt c/o pain across his chest this morning which he describes as achy after having compressions, rated 7/10. Med with Percocet 1 tab po as ordered with relief noted. Pt was also able to rest, he said.
[2024-06-27] MEDS: ZESTRIL 2.5 MG PO (10:55)
[2024-06-27] MEDS: CRESTOR 20 MG PO (17:26)
--- NOTE | 2024-06-27 18:54 | PTCARENOTE ---
Pt c/o chest discomfort across chest, from compressions, rated 8/10. Med with Percocet 1 tab PO as ordered.
[2024-06-28] MEDS: PERCOCET 5/325 1 TABLET PO ×3 (00:49→10:31)
[2024-06-28 04:25] VITALS: BP 104/74
[2024-06-28 05:22] LABS: Hematocrit 34.8 % (39.0-52.0); Hemoglobin 12.3 g/dL (13.0-18.0); Mean Corp Hgb Conc. 35.3 g/dL (33.0-37.0); Mean Corpuscular Hgb 31.5 pg (27.0-31.0); Mean Corpuscular Volume 89.2 fL (80.0-94.0); Mean Platelet Volume 9.9 fL (7.4-10.4); Platelet Count 199 10^3/uL (130-400); Red Cell Dist. Width 12.2 % (11.5-14.5); White Blood Cell Count 9.7 10^3/uL (4.8-10.8)
[2024-06-28 05:41] LABS: Blood Urea Nitrogen 13 mg/dl (9-20); Calcium 9.2 mg/dl (8.4-10.2); Carbon Dioxide 28 mmol/L (22-30); Chloride 103 mmol/L (98-107); Estimated Creatinine Clearance 79 ml/min; Glucose 103 mg/dl (70-99); Potassium 4.3 mmol/L (3.5-5.1); Sodium 133 mmol/L (135-145); eGFR > 60.00
[2024-06-28 06:00] VITALS: BMI 27.9
--- NOTE | 2024-06-28 07:34 | W.PN.HOSP.TC ---
Today's Communication/Plan
-
F/U further cardiology recommendations
possible DC today
Assessment / Plan
Assessment / Plan
68 yo man with hx tobacco use, HX small subacute infarct in the left internal capsule presents to ER with evaluation of chest pain s/p nitro and aspirin with continued pain presents to the ER and had cardiac arrest with pulseless VT s/p CPR and
cardioversion
Cardiac Cath
CONCLUSIONS
1. Right dominant circulation with an acute occlusion of the midportion of OM1 1, status post successful PCI (Medtronic Adarsh [place] 3.0 x 18 KERON, postdilated with a Euphora 3.0 x 15 NC balloon) with reduction in stenosis to 0%, restoring CRISTINA-3
flow.
2. Mildly elevated filling pressures (LVEDP = 18 mmHg at 93.0 kg).
3. Severe hypokinesis to akinesis of a large portion of the lateral wall with mildly reduced systolic function, LVEF estimated at 45-50%.
TTE
CONCLUSIONS
Normal LV size with mildly reduced systolic function.
LVEF is 40 to 45% by visual estimation.
Circumflex territory hypokinesis.
Normal right ventricular size and function.
No significant valvular disease.
Compared to prior from August 30, 2022, there is new circumflex territory
hypokinesis and EF is now mildly reduced estimated at 40 to 45% previously
normal.
ASSESSMENT & PLAN
Chest pain
Cardiac Arrest, Pulseless VT
Current smoker
New reduced systolic function with LVEF 45-50% on cardiac cath
s/p CPR and cardioversion and conversion to NSR, patient woke up and vomited, was not intubated
- Troponin peaked at 48.1
- s/p urgent cardiac cath with finding acute occlusion midportion OM1 s/p successful PCI
- appreciate cardiology
- continue aspirin/Ticagrelor
- addition of metoprolol and Lisinopril
- TTE results above
- F/U further cardiology recs
Hyponatremia
Hypotensive suspect hypovolemic
suspect excess ADH with acute cardia event
- sodium improved this AM
HX suggestive of ETOH use disorder
- daily beer - 4-5 cans daily
- MSAS protocol for low risk
Current smoker
- cessation of smoking suggested
Known HX: Pending Rx reconciliation
HX HLD
HX Small subacute infarct in the posterior limb of the left internal capsule per 08/30/22 Brain MRI: not on AP
HX 6 mm nodular focus along the superior aspect of the pituitary gland may represent a small pituitary neoplasm per brain MRI 08/30/22
HX Constipation
HX Diverticulitis
HX Arthritis
HX Umbilical hernia
DVT Px: SCD
Code: Full
IVU
Anticipated Discharge: Within 24 hours
Subjective/Interval History
-
Date of Service: June 28, 2024
feeling well
MSK pain from compressions - improved with percocet
Objective Data
-
Labs:
Laboratory Results
06/28/24
04:25
WBC 9.7
Hgb 12.3 L
Hct 34.8 L
Plt Count 199
Sodium 133 L
Potassium 4.3
Chloride 103
Carbon Dioxide 28
BUN 13
Creatinine 1.0
Glucose 103 H
Calcium 9.2
Vital Signs:
Vital Signs
Temp Pulse Resp BP Pulse Ox
97.9 F 66 18 104/74 96
06/28/24 04:00 06/28/24 06:00 06/28/24 04:00 06/28/24 04:25 06/27/24 23:17
I&O
06/27/24 06/28/24 06/29/24
06:59 06:59 06:59
Output Total 1500 / 1500 1475 / 1475
Balance -1500 / -1500 -1475 / -1475
Review of Systems
-
History Source: Patient
All other systems: Reviewed and negative
Physical Exam
-
General: No Apparent Distress
HEENT: PERRLA
Respiratory: Clear to Auscultation and Other (reproducible chest pain ); Negative Wheezes
Cardiac: Regular Rhythm and S1/S2
GI: Soft and Nontender
Musculoskeletal: No Edema
Skin: Warm and Dry; Negative Rash
Neuro: AO x 3
Psych: Calm
Data Reviewed
-
Diagnostic Radiology: Report Reviewed by me
Labs: Labs Reviewed by me
[2024-06-28] MEDS: ZESTRIL 2.5 MG PO (07:48)
[2024-06-28] MEDS: ASPIR LOW (ENTERIC COATED) 81 MG PO (07:48)
[2024-06-28] MEDS: ASPIR LOW (ENTERIC COATED) PO (07:49)
[2024-06-28] MEDS: BRILINTA 90 MG PO (07:49)
[2024-06-28 07:50] VITALS: BP 109/68
[2024-06-28] MEDS: FOLVITE 1 MG PO (07:50)
[2024-06-28] MEDS: TOPROL XL 25 MG PO (07:50)
[2024-06-28] MEDS: THIAMINE INJECTION 200 MG IV (07:52)
--- NOTE | 2024-06-28 08:05 | W.PN.CD ---
Today's Communication / Plan
-
CXR.
MSK pain control.
Discharge planning.
Impression / Plan
-
Impression/Plan: 68 y/o male with HLD and prior lacunar CVA admitted with intermittent chest pain beginning at 14:00 today, becoming constant and severe around 18:00, complicated by VF arrest.
#VF arrest
-Acute, resolved.
-In the context of chest pain, this is a STEMI equivalent.
-Cardiac catheterization showed a flush occluded OM, s/p successful PCI (Medtronic Adarsh [place] 3.0 x 18 KERON, post dilated with a 3.0 x 15 NCB) with reduction in stenosis to 0%, restoring CRISTINA III flow.
-LVEF 45-50% with lateral hypokinesis on LV-gram.
-Troponin peaked at 48.1.
-DAPT with aspirin and ticagrelor for 12 months, followed by aspirin indefinitely.
-High dose, high potency statin.
-HbA1c = 5.2%.
-Continue metoprolol succinate 25 mg daily.
#ICMO
-Acute, new diagnosis.
-Echocardiogram shows ICMO, LVEF 40-45% with LCx WMA.
-GDMT as hemodynamics will tolerate.
-Continue metoprolol and lisinopril.
#Chest pain
-Acute.
-MSK related to CPR.
-CXR to r/o rib fracture.
-Pain control with APAP, narcotics if needed but limited use.
#HLD
-Chronic, stable.
-Total cholesterol = 113, LDL = 21, HDL = 54, Triglycerides = 191.
-Continue rosuvastatin. LDL is at goal (< 55).
-He may benefit from fenofibrate or icosapent ethyl as an outpatient.
#Dispo
-IVU status.
-Full code.
-Possible discharge.
Subjective/Interval History:
Mechanical chest pain from CPR continues.
Relieved with oxycodone/APAP.
DATA:
Cardiac Catheterization/PCI, 06/26/2024:
CONCLUSIONS
1. Right dominant circulation with an acute occlusion of the midportion of OM1 1, status post successful PCI (Medtronic Adarsh [place] 3.0 x 18 KERON, postdilated with a Euphora 3.0 x 15 NC balloon) with reduction in stenosis to 0%, restoring CRISTINA-3
flow.
2. Mildly elevated filling pressures (LVEDP = 18 mmHg at 93.0 kg).
3. Severe hypokinesis to akinesis of a large portion of the lateral wall with mildly reduced systolic function, LVEF estimated at 45-50%.
TTE, 06/27/2024:
CONCLUSIONS
Normal LV size with mildly reduced systolic function.
LVEF is 40 to 45% by visual estimation.
Circumflex territory hypokinesis.
Normal right ventricular size and function.
No significant valvular disease.
Compared to prior from August 30, 2022, there is new circumflex territory
hypokinesis and EF is now mildly reduced estimated at 40 to 45% previously
normal.
Physical Exam
Vital Signs/Labs
Vital Signs
Temp Pulse Resp BP Pulse Ox
36.6 C 66 18 104/74 96
06/28/24 04:00 06/28/24 06:00 06/28/24 04:00 06/28/24 04:25 06/27/24 23:17
06/26/24 06/27/24 06/28/24
11:59 11:59 11:59
Actual Weight 93.5 kg 93.3 kg
06/28/24 04:25
06/28/24 04:25
Magnesium 1.9 mg/dl (1.6-2.3) 06/27/24 04:14
Triglycerides 191 mg/dl (10-149) H 06/27/24 04:14
LDL Cholesterol, Calc 21 mg/dl 06/27/24 04:14
VLDL Cholesterol, Calc 38 mg/dl (0-30) H 06/27/24 04:14
HDL Cholesterol 54 mg/dl 06/27/24 04:14
LAB Results
06/26/24 06/26/24 06/26/24
21:09 23:15 23:31
Troponin I < 0.012 Cancelled 5.200 H* D
06/27/24 06/27/24 06/27/24
04:14 05:15 05:21
Troponin I 48.100 H* D Cancelled Cancelled
06/27/24
11:10
Troponin I 26.300 H* D
Physical Exam
Constitutional: No acute distress and Comfortable
EENT: Anicteric and Moist mucous membranes
Cardiovascular: Rhythm & rate is regular, Pedal edema is absent, JVD pressure is normal, S1S2 is normal and Murmur/rub/gallop absent
Respiratory: Respiratory effort normal, Lungs clear to auscul., Wheeze Absent, Crackles Absent and Rhonchi Absent
GI: Soft, Distention absent, Flat, Non tender and Normal bowel sounds
Neuro/Psych: AO x 3
Other: Cath Site (Right radial access site is C/D/I.)
Data Reviewed
-
Date of Service: June 28, 2024
Medical Decision Making: Reviewed Test Results, Independent Historian Assessment, Test Interpretation and Review of Case with other Provider
EKG: Tracing Personally Visualized and interpreted and Report Reviewed by me
Echo: Tracing Personally Visualized and interpreted and Report Reviewed by me
Medical Tests (PFT, Pathology etc): Image Personally Visualized and interpreted and Report Reviewed by me
Labs: Labs Reviewed by me
Old Records: Reviewed
[2024-06-28] MEDS: TYLENOL 650 MG PO (08:51)
--- NOTE | 2024-06-28 10:14 | CM ---
Reviewed chart. Met with Mr. Edmondson to review discharge plans. Reviewed co-pay with him and the $5.00 coupon. He is agreeable to the co-pay. Telephone call to [facility] to check if Brilinta 90 mg po bid in stock. [facility] does not
have it in stock. Can not get it in until Monday after 3:00 p.m. if they receive script today. Mr. Edmondson states to try [facility] on [address] Telephone call to [facility] on [address] and they have Brilinta 90 mg po bid in stock. Asked attending
physician to send Brilinta script to [facility]. Prior to admission he resides with spouse in a two story home without any steps to enter. He has a full flight of steps to get to bedroom/full bathroom. He has a powder room on the first floor. Prior to
admission he was independent with ambulation and adls. He does not have any DME in the home. He has a prescription plan. Medical work-up in progress. The discharge plan is to return home with his spouse when medically stable.
[2024-06-28 11:57] VITALS: BP 106/62
--- NOTE | 2024-06-28 12:13 | PTCARENOTE ---
Pt c/o pain across chest from chest compression, rated 7/10, med with Percocet 1 tab po as ordered with relief noted.
--- NOTE | 2024-06-28 14:07 | W.DS.TRANS ---
DC Summary - Esthetician Makeup Artist
-
Discharge Instructions:
Discharge Diagnosis/Procedures ventricular fibrillation, ST Elevation
Myocardial Injury Equivalent, ischemic
cardiomyopathy
Diet Low Cholesterol,Restrict fluids to 48 oz
Activity As tolerated
Driving Restrictions As prior to admission
Bathing Restrictions None
Blood Work BMP in one week
Specialty Instructions Weigh Daily
Instructions: Cardiac Catheterization (DC)
Stand-Alone Forms:
Changes to Home Medications: Yes
Discharge Medications:
DC Medications w/original date entered in [employer]
aspirin 81 mg tablet,delayed release 81 mg PO DAILY 30 days #30 tabs 08/31/22
ropinirole 2 mg tablet 2 mg PO HS 06/26/24
rosuvastatin 20 mg tablet 20 mg PO QPM 06/26/24
lisinopril 2.5 mg tablet 2.5 mg PO DAILY #30 tabs 06/28/24
metoprolol succinate 25 mg tablet,extended release 24 hr 25 mg PO DAILY #30 tabs 06/28/24
oxycodone-acetaminophen 5 mg-325 mg tablet 1 tab PO Q4HPRN PRN severe pain #15 tabs 06/28/24
pantoprazole 40 mg tablet,delayed release (Protonix) 40 mg PO DAILY #60 tabs 06/28/24
ticagrelor 90 mg tablet (Brilinta) 90 mg PO BID #120 tabs 06/28/24
Home Medication Changes
Continue aspirin indefinitely
You are newly started on Brilinta twice a day. You will need to take this x 1 year to protect stent.
You are started on Lisinopril and Metoprolol to improve heart function.
You are started on Protonix to protect the lining of your stomach while on aspirin and Brilinta.
You may take Percocet to help with pain from chest compressions.
Do not take NSAIDs (motrin, advil, aleve, ibuprofen) while on Brilinta.
Pending Results: No
--- NOTE | 2024-06-28 14:09 | W.DCSUMMARY ---
Discharge Summary
Discharge Data
Date of Admission: 06/26/24
Date of Discharge: 06/28/24
-
Pending Results: No
Hospital Course
Discharging Physician : Dr. Sana Bangura
Disposition : Home
Primary care physician : Dr. Dileep Bob
Principal Discharge diagnosis : Ventricular Fibrrilation Arrest, STEMI equivalent, Ischemic Cardiomyopathy
Hospital Course :
Mr. Ankush Edmondson is a 68 yo man with hx tobacco use, CVA presents to ER with evaluation of chest pain. While in the ER he had a cardiac arrest with pulseless VT s/p CPR and cardioversion. He was taken urgently to catheterization with finding of
acute occlusion midportion OM1 s/p PCI. TTE with finding LVEF 40-45%.
Patient had pain from compressions during hospital stay, no return of cardiac chest pain. He is newly started on Brilinta, Metoprolol XL and Lisinopril. He will get a BMP in one week.
Given history of alcohol use and new start Brilinta with aspirin, he is started on Protonix for GI prophylaxis.
He will follow up closely with PCP and cardiology.
Time spent on discharge was 35 minutes.
Important imaging findings :
TTE
CONCLUSIONS
Normal LV size with mildly reduced systolic function.
LVEF is 40 to 45% by visual estimation.
Circumflex territory hypokinesis.
Normal right ventricular size and function.
No significant valvular disease.
Compared to prior from August 30, 2022, there is new circumflex territory
hypokinesis and EF is now mildly reduced estimated at 40 to 45% previously
normal.
Procedure findings :
Cardiac Cath
CONCLUSIONS
1. Right dominant circulation with an acute occlusion of the midportion of OM1 1, status post successful PCI (Medtronic [place] 3.0 x 18 KERON, postdilated with a Euphora 3.0 x 15 NC balloon) with reduction in stenosis to 0%, restoring CRISTINA-3
flow.
2. Mildly elevated filling pressures (LVEDP = 18 mmHg at 93.0 kg).
3. Severe hypokinesis to akinesis of a large portion of the lateral wall with mildly reduced systolic function, LVEF estimated at 45-50%.
Discharge Plan
-
Patient Disposition: Home (Routine Discharge)
Discharge Diagnosis/Procedures: ventricular fibrillation, ST Elevation Myocardial Injury Equivalent, ischemic cardiomyopathy
Diet: Low Cholesterol and Restrict fluids to 48 oz
Activity: As tolerated
Driving Restrictions: As prior to admission
Bathing Restrictions: None
Blood Work: BMP in one week
Specialty Instructions: Weigh Daily- Call MD for wt gain/loss 3 lbs overnight/5 lbs in 1 week
Instructions: Cardiac Catheterization (DC)
Referrals:
[facility] [Outside] - 08/01/24 1:00 pm
(Cardiac Rehab Orientation appointment is on August 01, 2024 @ 1:00pm.
The Cardiac Rehab gym is located on the first floor of the [facility].)
Nick Lo, DO [Active] - in one week
UNKNOWN - PT NOT,INTERVIEWE [Unknown Provider] -
Additional Discharge Medication Instructions: Continue aspirin indefinitely
You are newly started on Brilinta twice a day. You will need to take this x 1 year to protect stent.
You are started on Lisinopril and Metoprolol to improve heart function.
You are started on Protonix to protect the lining of your stomach while on aspirin and Brilinta.
You may take Percocet to help with pain from chest compressions.
Do not take NSAIDs (motrin, advil, aleve, ibuprofen) while on Brilinta.
Prescriptions:
New
Brilinta 90 mg Tablet
90 mg PO BID Qty: 120 0RF
oxycodone-acetaminophen 5-325 mg Tablet
1 tab PO Q4HPRN PRN (Reason: severe pain) Qty: 15 0RF
metoprolol succinate 25 mg Tablet Extended Release 24 Hr
25 mg PO DAILY Qty: 30 0RF
lisinopril 2.5 mg Tablet
2.5 mg PO DAILY Qty: 30 0RF
pantoprazole [Protonix] 40 mg tablet,delayed release (DR/EC)
40 mg PO DAILY Qty: 60 0RF
Continued
aspirin 81 mg Tablet,Delayed Release (Dr/Ec)
81 mg PO DAILY 30 Days Qty: 30 0RF
ropinirole 2 mg tablet
2 mg PO HS
rosuvastatin 20 mg tablet
20 mg PO QPM
Discontinued
ibuprofen 200 mg Tablet
600 mg PO BIDPRN PRN (Reason: mild pain)
Discharge Orders:
Discharge Patient (As Directed); Ordered 06/28/24
Ordered By: Sana Bangura
Care Plan Goals
Care Plan Goals:
Problem: Readiness for enhanced knowledge related to diagnosis and treatment plan
Goal: Understand your diagnosis and treatment plan needs, including medications if applicable.
Instructions: Know your diagnosis, underlying causes and treatment plan options, including medications if applicable. Consult with your health care team to learn about your diagnosis and treatment plan, including medications if applicable.
Discharge Date and Time
Print Language: MALTESE
== END 2024-06-28 15:19 | disposition home or self-care (01) | DRG 321 ==
LOC: IVU 22:34
PROVIDERS: ADMITTING PHYSICIAN Internal Medicine; ATTENDING PHYSICIAN Student in an Organized Health Care Education/Training Program; CONSULT PHYSICIAN Internal Medicine Cardiovascular Disease; EMERGENCY PHYSICIAN Student in an Organized Health Care Education/Training Program; FAMILY PHYSICIAN Family Medicine
PROC: 5A12012 Performance of Cardiac Output, Single, Manual (ICD-10-PCS; 2024-06-26)
PROC: B2151ZZ Fluoroscopy of Left Heart using Low Osmolar Contrast (ICD-10-PCS; 2024-06-26)
PROC: 027034Z Dilation of Coronary Artery, One Artery with Drug-eluting Intraluminal Device, Percutaneous Approach (ICD-10-PCS; 2024-06-26)
PROC: 4A023N7 Measurement of Cardiac Sampling and Pressure, Left Heart, Percutaneous Approach (ICD-10-PCS; 2024-06-26)
PROC: 5A2204Z Restoration of Cardiac Rhythm, Single (ICD-10-PCS; 2024-06-26)
PROC: B2111ZZ Fluoroscopy of Multiple Coronary Arteries using Low Osmolar Contrast (ICD-10-PCS; 2024-06-26)
DX: I21.21 ST elevation (STEMI) myocardial infarction involving left circumflex coronary artery (principal); I46.2 Cardiac arrest due to underlying cardiac condition; I49.01 Ventricular fibrillation; E87.1 Hypo-osmolality and hyponatremia; I47.20 Ventricular tachycardia, unspecified; I25.10 Atherosclerotic heart disease of native coronary artery without angina pectoris; I95.9 Hypotension, unspecified; F17.210 Nicotine dependence, cigarettes, uncomplicated; I25.5 Ischemic cardiomyopathy; E78.00 Pure hypercholesterolemia, unspecified; K21.9 Gastro-esophageal reflux disease without esophagitis; D49.7 Neoplasm of unspecified behavior of endocrine glands and other parts of nervous system; R11.2 Nausea with vomiting, unspecified; R41.82 Altered mental status, unspecified; Z79.82 Long term (current) use of aspirin; Z79.899 Other long term (current) drug therapy; Z87.19 Personal history of other diseases of the digestive system; Z86.73 Personal history of transient ischemic attack (TIA), and cerebral infarction without residual deficits; Z88.0 Allergy status to penicillin
CPT/HCPCS: 71046; 80048; 80053; 80061; 82077; 82977; 83036; 83735; 83935; 84300; 84484; 85025; 85027; 85347; 93005; 93306; 93458; 96374; 99291; C1725; C1874; C1894; C9600; C9606; Q9967

== ENCOUNTER 2024-08-19 13:35 | Outpatient (RCR) | payer OTHER, MEDICARE, SELFPAY | END 2024-08-19 23:59 | disposition home or self-care (01) | LOC: CRHB 13:35 | PROVIDERS: ATTENDING PHYSICIAN Internal Medicine Cardiovascular Disease; FAMILY PHYSICIAN Family Medicine | DX: I25.10 Atherosclerotic heart disease of native coronary artery without angina pectoris (principal); Z95.5 Presence of coronary angioplasty implant and graft; I25.2 Old myocardial infarction | CPT/HCPCS: G0422; G0423 ==

== ENCOUNTER → 2024-09-09 14:08 | Outpatient (REF) | payer OTHER, SELFPAY | LOC: RAD 14:08 | PROVIDERS: ATTENDING PHYSICIAN Family Medicine | DX: I21.3 ST elevation (STEMI) myocardial infarction of unspecified site (principal); Z86.73 Personal history of transient ischemic attack (TIA), and cerebral infarction without residual deficits; G89.29 Other chronic pain; Z98.890 Other specified postprocedural states; M15.0 Primary generalized (osteo)arthritis; Z72.0 Tobacco use; R10.9 Unspecified abdominal pain | CPT/HCPCS: 76770 ==

== ENCOUNTER 2024-09-18 13:37 | Outpatient (RCR) | payer OTHER, MEDICARE, SELFPAY | END 2024-09-18 23:59 | disposition home or self-care (01) | LOC: CRHB 13:37 | PROVIDERS: ATTENDING PHYSICIAN Internal Medicine Cardiovascular Disease; FAMILY PHYSICIAN Family Medicine | DX: I25.10 Atherosclerotic heart disease of native coronary artery without angina pectoris (principal); Z95.5 Presence of coronary angioplasty implant and graft; I25.2 Old myocardial infarction | CPT/HCPCS: G0422; G0423 ==

== ENCOUNTER → 2024-09-20 13:54 | Outpatient (REF) | payer OTHER, SELFPAY | LOC: RAD 13:54 | PROVIDERS: ATTENDING PHYSICIAN Family Medicine | DX: R10.9 Unspecified abdominal pain (principal); R10.2 Pelvic and perineal pain | CPT/HCPCS: 74177; Q9967 ==

== ENCOUNTER → 2024-10-10 12:42 | Outpatient (REF) | payer OTHER, MEDICARE, SELFPAY | LOC: RCS 12:42 | PROVIDERS: ATTENDING PHYSICIAN Internal Medicine Cardiovascular Disease; FAMILY PHYSICIAN Family Medicine | DX: I25.5 Ischemic cardiomyopathy (principal) | CPT/HCPCS: 93308; 93321; 93325 ==

== ENCOUNTER 2024-10-18 13:26 | Outpatient (RCR) | payer MEDICARE, SELFPAY | END 2024-10-18 23:59 | disposition home or self-care (01) | LOC: CRHB 13:26 | PROVIDERS: ATTENDING PHYSICIAN Internal Medicine Cardiovascular Disease; FAMILY PHYSICIAN Family Medicine | DX: I25.10 Atherosclerotic heart disease of native coronary artery without angina pectoris (principal); Z95.5 Presence of coronary angioplasty implant and graft; I25.2 Old myocardial infarction | CPT/HCPCS: G0422; G0423 ==

== ENCOUNTER 2024-10-23 13:33 | Outpatient (RCR) | payer MEDICARE, SELFPAY | END 2024-10-23 23:59 | disposition home or self-care (01) | LOC: CRHB 13:33 | PROVIDERS: ATTENDING PHYSICIAN Internal Medicine Cardiovascular Disease; FAMILY PHYSICIAN Family Medicine | DX: I21.01 ST elevation (STEMI) myocardial infarction involving left main coronary artery (principal); Z95.5 Presence of coronary angioplasty implant and graft; I25.10 Atherosclerotic heart disease of native coronary artery without angina pectoris | CPT/HCPCS: G0422; G0423 ==

== ENCOUNTER → 2025-02-03 12:40 | Outpatient (REF) | payer OTHER, SELFPAY | LOC: HWRAD 12:40 | PROVIDERS: ATTENDING PHYSICIAN Family Medicine | DX: M15.0 Primary generalized (osteo)arthritis (principal) | CPT/HCPCS: 73564 ==

== ENCOUNTER → 2025-09-09 11:07 | Outpatient (REF) | payer OTHER, SELFPAY | LOC: HWRCS 11:07 | PROVIDERS: ATTENDING PHYSICIAN Internal Medicine Cardiovascular Disease; FAMILY PHYSICIAN Family Medicine | DX: I25.10 Atherosclerotic heart disease of native coronary artery without angina pectoris (principal); I21.21 ST elevation (STEMI) myocardial infarction involving left circumflex coronary artery; R06.09 Other forms of dyspnea | CPT/HCPCS: 78452; 93017; A9500; J2785 ==

== ENCOUNTER → 2025-09-17 14:49 | Outpatient (REF) | payer OTHER, SELFPAY | LOC: RCS 14:49 | PROVIDERS: ATTENDING PHYSICIAN Internal Medicine Cardiovascular Disease; FAMILY PHYSICIAN Family Medicine | DX: R06.09 Other forms of dyspnea (principal); I25.10 Atherosclerotic heart disease of native coronary artery without angina pectoris; I21.21 ST elevation (STEMI) myocardial infarction involving left circumflex coronary artery | CPT/HCPCS: 93306 ==